=== PATIENT | male | born 1965 | race Caucasian/White ===

== ENCOUNTER 2022-01-11 15:10 | Inpatient (IN) | payer MEDICARE, BC ==
[2022-01-11 15:58] LABS: #Eosinphils 0.3 10x3/uL (0.0-0.5); #Monocytes 0.6 10x3/uL (0.0-1.1); #Neutrophils 5.9 10x3/uL (1.5-8.4); %Basophils 0.5 % (0.0-2.0); %Eosinophils 3.3 % (0.0-6.0); %Lymphocytes 8.1 % (18.0-47.0); %Neutrophils 79.4 % (40.0-75.0); Hemoglobin 12.2 g/dL (13.5-17.5); Mean Corpuscular HGB CONC 30.6 g/dL (32.0-36.0); Mean Corpuscular Hemoglobin 26.6 pg (27.0-33.0); Mean Corpuscular Volume 86.9 fl (81.2-95.1); Mean Platelet Volume 10.3 fl (7.4-10.4); Platelet Count 171 10x3/uL (150-450); RBC Distribution Width 16.9 % (11.5-14.5); Red Blood Cell (RBC) Count 4.59 10x6/uL (4.32-5.72); White Blood Cell (WBC) Count 7.5 10x3/uL (3.5-10.5)
[2022-01-11 16:11] LABS: ALT (SGPT) 11 U/L (8-55); AST (SGOT) 19 U/L (5-34); Albumin 4.1 g/dL (3.5-5.0); Alkaline Phosphatase 101 U/L (40-110); Anion Gap 15 mmol/L (10-20); BUN (Urea Nitrogen) 20 mg/dL (8.4-25.7); Bilirubin, Total 1.2 mg/dL (0.2-1.2); Calc. Creatinine Clearance 0 mL/min (70-130); Carbon Dioxide 24 mmol/L (22-29); Chloride 109 mmol/L (98-107); Globulin 2.4 g/dL (2.4-3.5); Glucose 110 mg/dL (70-105); Potassium 3.8 mmol/L (3.5-5.1); Protein, Total 6.5 g/dL (6.0-8.3); Sodium 144 mmol/L (136-145)
[2022-01-11] MEDS ORDERED: Acetaminophen 500 MG TAB ONE (16:19)
[2022-01-11] MEDS ORDERED: HYDROcodone/Acetaminophen 5/325 mg Tablet ONE (20:01)
[2022-01-11 21:23] LABS: Troponin I 0.022 ng/mL (< 0.028)
[2022-01-11 22:10] VITALS: BMI 54.8
[2022-01-11] MEDS ORDERED: Atorvastatin Calcium 40 MG TAB PO SCH (22:30)
[2022-01-11] MEDS ORDERED: traZODone HCl 50 MG TAB PO SCH (22:30)
[2022-01-11] MEDS ORDERED: Pregabalin 50 MG CAP PO SCH (22:30)
[2022-01-11] MEDS ORDERED: Nitroglycerin 2% Ointment 1 INCH/1 GM Packet TOP SCH (22:30)
[2022-01-11] MEDS: Apixaban 5 MG TAB PO SCH (22:40)
[2022-01-11] MEDS: Nitroglycerin 2% Ointment 1 INCH/1 GM Packet TOP SCH (22:41)
[2022-01-11] MEDS ORDERED: Torsemide 100 MG TAB PO SCH (22:45)
[2022-01-12] MEDS ORDERED: Labetalol HCl 100 MG/20 ML VIAL SLOW IVP SCH (00:30)
[2022-01-12 01:38] LABS: Troponin I 0.021 ng/mL (< 0.028)
[2022-01-12 05:15] LABS: #Basophils 0.1 10x3/uL (0.0-0.2); #Eosinphils 0.3 10x3/uL (0.0-0.5); #Monocytes 0.6 10x3/uL (0.0-1.1); #Neutrophils 4.3 10x3/uL (1.5-8.4); %Basophils 0.8 % (0.0-2.0); %Eosinophils 4.7 % (0.0-6.0); %Lymphocytes 14.4 % (18.0-47.0); %Monocytes 9.8 % (0.0-10.0); %Neutrophils 69.5 % (40.0-75.0); Hemoglobin 12.2 g/dL (13.5-17.5); Mean Corpuscular HGB CONC 30.1 g/dL (32.0-36.0); Mean Corpuscular Hemoglobin 25.8 pg (27.0-33.0); Mean Corpuscular Volume 85.8 fl (81.2-95.1); Mean Platelet Volume 10.3 fl (7.4-10.4); Platelet Count 161 10x3/uL (150-450); RBC Distribution Width 16.7 % (11.5-14.5); Red Blood Cell (RBC) Count 4.72 10x6/uL (4.32-5.72); White Blood Cell (WBC) Count 6.2 10x3/uL (3.5-10.5)
[2022-01-12 05:18] LABS: Anion Gap 14 mmol/L (10-20); BUN (Urea Nitrogen) 18 mg/dL (8.4-25.7); Calc. Creatinine Clearance 154 mL/min (70-130); Calcium 9.2 mg/dL (7.8-10.44); Carbon Dioxide 27 mmol/L (22-29); Cardiac Risk 3.6 (Less than 4.5); Chloride 107 mmol/L (98-107); Cholesterol 94 mg/dl (< 200 Desired); Glucose 93 mg/dL (70-105); HDL Cholesterol 26 mg/dL (>60 Neg Risk); LDL Cholesterol, Calculated 54 mg/dL; Magnesium 1.7 mg/dL (1.6-2.6); Potassium 3.4 mmol/L (3.5-5.1); Sodium 145 mmol/L (136-145); Triglycerides 72 mg/dL (Less than 150)
[2022-01-12] MEDS ORDERED: Spironolactone 25 MG TAB PO SCH ×2 (08:00→21:15)
[2022-01-12] MEDS: Aspirin 81 mg Enteric Coated Tablet PO SCH (09:16)
[2022-01-12] MEDS: Apixaban 5 MG TAB PO SCH ×2 (09:16→20:37)
[2022-01-12] MEDS: Potassium Chloride 20 MEQ TAB PO SCH (09:17)
[2022-01-12] MEDS: Torsemide 100 MG TAB PO SCH ×2 (09:23→21:40)
[2022-01-12] MEDS ORDERED: Carvedilol 25 MG TAB PO SCH (12:00)
[2022-01-12] MEDS ORDERED: Carvedilol 25 MG TAB ONE (12:12)
[2022-01-12] MEDS: HYDROcodone/Acetaminophen 10/325 mg Tablet PO PRN (12:13)
[2022-01-12] MEDS: Nitroglycerin 2% Ointment 1 INCH/1 GM Packet TOP SCH ×2 (14:47→20:41)
[2022-01-12] MEDS: Morphine 4 MG/ML VIAL SLOW IVP PRN (14:47)
[2022-01-12] MEDS: Carvedilol 12.5 MG TAB PO SCH (17:43)
[2022-01-12 19:59] LABS: SARS-CoV-2 PCR by NAA Not Detected (NotDetected)
[2022-01-12] MEDS: Atorvastatin Calcium 40 MG TAB PO SCH (20:37)
[2022-01-12] MEDS: Pregabalin 50 MG CAP PO SCH (20:38)
[2022-01-12] MEDS: traZODone HCl 50 MG TAB PO SCH (20:45)
[2022-01-13 04:24] LABS: #Eosinphils 0.4 10x3/uL (0.0-0.5); #Monocytes 0.6 10x3/uL (0.0-1.1); #Neutrophils 4.1 10x3/uL (1.5-8.4); %Basophils 0.7 % (0.0-2.0); %Eosinophils 6.2 % (0.0-6.0); %Lymphocytes 12.1 % (18.0-47.0); %Monocytes 9.5 % (0.0-10.0); Mean Corpuscular HGB CONC 29.6 g/dL (32.0-36.0); Mean Corpuscular Hemoglobin 25.9 pg (27.0-33.0); Mean Corpuscular Volume 87.3 fl (81.2-95.1); Mean Platelet Volume 11.1 fl (7.4-10.4); Platelet Count 168 10x3/uL (150-450); RBC Distribution Width 16.4 % (11.5-14.5); Red Blood Cell (RBC) Count 4.64 10x6/uL (4.32-5.72); White Blood Cell (WBC) Count 5.8 10x3/uL (3.5-10.5)
[2022-01-13 04:48] LABS: Anion Gap 14 mmol/L (10-20); BUN (Urea Nitrogen) 21 mg/dL (8.4-25.7); Calc. Creatinine Clearance 147 mL/min (70-130); Calcium 9.2 mg/dL (7.8-10.44); Carbon Dioxide 30 mmol/L (22-29); Chloride 103 mmol/L (98-107); Glucose 97 mg/dL (70-105); Potassium 3.2 mmol/L (3.5-5.1); Sodium 144 mmol/L (136-145)
[2022-01-13] MEDS: Nitroglycerin 2% Ointment 1 INCH/1 GM Packet TOP SCH ×3 (06:12→21:36)
[2022-01-13] MEDS: Apixaban 5 MG TAB PO SCH ×3 (08:43→21:36)
[2022-01-13] MEDS: Potassium Chloride 20 MEQ TAB PO SCH (08:43)
[2022-01-13] MEDS: HYDROcodone/Acetaminophen 10/325 mg Tablet PO PRN (08:44)
[2022-01-13] MEDS: Spironolactone 25 MG TAB PO SCH ×2 (08:44→16:05)
[2022-01-13] MEDS: Carvedilol 12.5 MG TAB PO SCH ×2 (08:44→16:18)
[2022-01-13] MEDS: Aspirin 81 mg Enteric Coated Tablet PO SCH (08:44)
[2022-01-13] MEDS: Torsemide 100 MG TAB PO SCH ×2 (08:46→21:34)
[2022-01-13] MEDS: Nitroglycerin 0.4 MG TAB (25 Tab Bottle) SL PRN ×2 (10:09→10:14)
[2022-01-13] MEDS: Morphine 4 MG/ML VIAL SLOW IVP PRN (12:56)
[2022-01-13] MEDS ORDERED: Electrolyte Replacement Protocol 1 EACH FS SCH (13:30)
[2022-01-13] MEDS ORDERED: Potassium Chloride 20 MEQ TAB PO SCH (13:45)
[2022-01-13] MEDS ORDERED: Magnesium 2 GM/50 ML(in water) 2 GM in Premix Bag 1 BAG IVPB SCH (13:45)
[2022-01-13] MEDS: Ibuprofen 600 MG TAB PO SCH ×2 (16:04→21:31)
[2022-01-13] MEDS: Diclofenac 1% 100 GM GEL TP SCH ×2 (17:19→21:32)
[2022-01-13] MEDS: Atorvastatin Calcium 40 MG TAB PO SCH (21:32)
[2022-01-13] MEDS: Famotidine 20 MG TAB PO SCH (21:33)
[2022-01-13] MEDS: Pregabalin 50 MG CAP PO SCH (21:33)
[2022-01-13] MEDS: traZODone HCl 50 MG TAB PO SCH (21:34)
[2022-01-14] MEDS: Morphine 4 MG/ML VIAL SLOW IVP PRN ×3 (00:03→23:52)
[2022-01-14] MEDS: Ibuprofen 600 MG TAB PO SCH ×4 (02:18→20:16)
[2022-01-14 05:10] LABS: Magnesium 1.9 mg/dL (1.6-2.6); Potassium 3.9 mmol/L (3.5-5.1)
[2022-01-14] MEDS ORDERED: Magnesium 2 GM/50 ML(in water) 2 GM in Premix Bag 1 BAG IVPB SCH ×2 (05:30→06:45)
[2022-01-14] MEDS: Nitroglycerin 2% Ointment 1 INCH/1 GM Packet TOP SCH ×3 (06:47→21:22)
[2022-01-14] MEDS: Torsemide 100 MG TAB PO SCH ×2 (10:22→21:27)
[2022-01-14] MEDS: Aspirin 81 mg Enteric Coated Tablet PO SCH (10:22)
[2022-01-14] MEDS: Lidocaine 5% Patch TD SCH (10:23)
[2022-01-14] MEDS: Famotidine 20 MG TAB PO SCH ×2 (10:23→20:17)
[2022-01-14] MEDS: Carvedilol 12.5 MG TAB PO SCH ×2 (10:23→16:44)
[2022-01-14] MEDS: Apixaban 5 MG TAB PO SCH ×2 (10:23→20:17)
[2022-01-14] MEDS: Spironolactone 25 MG TAB PO SCH ×2 (10:24→16:44)
[2022-01-14] MEDS: Potassium Chloride 20 MEQ TAB PO SCH (10:24)
[2022-01-14] MEDS: HYDROcodone/Acetaminophen 10/325 mg Tablet PO PRN ×2 (13:30→20:27)
[2022-01-14] MEDS: Diclofenac 1% 100 GM GEL TP SCH ×4 (17:43→21:15)
[2022-01-14] MEDS: Pregabalin 50 MG CAP PO SCH (20:17)
[2022-01-14] MEDS: Atorvastatin Calcium 40 MG TAB PO SCH (20:18)
[2022-01-14] MEDS: traZODone HCl 50 MG TAB PO SCH (20:18)
[2022-01-14] MEDS: Transdermal Patch Removal TOP SCH (21:27)
[2022-01-15] MEDS: Ibuprofen 600 MG TAB PO SCH ×4 (01:35→21:01)
[2022-01-15 04:50] LABS: Phosphorus 4.4 mg/dL (2.3-4.7)
[2022-01-15 04:53] LABS: Anion Gap 13 mmol/L (10-20); BUN (Urea Nitrogen) 33 mg/dL (8.4-25.7); Calc. Creatinine Clearance 97 mL/min (70-130); Calcium 8.8 mg/dL (7.8-10.44); Carbon Dioxide 30 mmol/L (22-29); Chloride 103 mmol/L (98-107); Glucose 99 mg/dL (70-105); Magnesium 2.3 mg/dL (1.6-2.6); Potassium 4.1 mmol/L (3.5-5.1); Sodium 142 mmol/L (136-145)
[2022-01-15] MEDS: Nitroglycerin 2% Ointment 1 INCH/1 GM Packet TOP SCH ×2 (05:48→14:00)
[2022-01-15] MEDS: HYDROcodone/Acetaminophen 10/325 mg Tablet PO PRN (05:48)
[2022-01-15] MEDS: Lidocaine 5% Patch TD SCH (09:29)
[2022-01-15] MEDS: Diclofenac 1% 100 GM GEL TP SCH ×4 (09:29→21:02)
[2022-01-15] MEDS: Aspirin 81 mg Enteric Coated Tablet PO SCH (09:31)
[2022-01-15] MEDS: Famotidine 20 MG TAB PO SCH ×3 (09:31→21:02)
[2022-01-15] MEDS: Apixaban 5 MG TAB PO SCH ×2 (09:31→21:01)
[2022-01-15] MEDS: Torsemide 100 MG TAB PO SCH ×2 (09:31→20:59)
[2022-01-15] MEDS: Potassium Chloride 20 MEQ TAB PO SCH (09:31)
[2022-01-15] MEDS: Spironolactone 25 MG TAB PO SCH ×2 (09:31→17:36)
[2022-01-15] MEDS: Carvedilol 12.5 MG TAB PO SCH ×2 (09:40→17:36)
[2022-01-15 13:57] LABS: Troponin I 0.018 ng/mL (< 0.028)
[2022-01-15] MEDS: Morphine 4 MG/ML VIAL SLOW IVP PRN (14:09)
[2022-01-15] MEDS: Promethazine HCl 12.5 MG in Sodium Chloride 0.9% 50 ML IVPB PRN (16:53)
[2022-01-15] MEDS: Atorvastatin Calcium 40 MG TAB PO SCH (21:00)
[2022-01-15] MEDS: Pregabalin 50 MG CAP PO SCH (21:00)
[2022-01-15] MEDS: traZODone HCl 50 MG TAB PO SCH (21:16)
[2022-01-15] MEDS: Transdermal Patch Removal TOP SCH (21:20)
[2022-01-16] MEDS: Ibuprofen 600 MG TAB PO SCH ×2 (04:11→05:52)
[2022-01-16 05:26] LABS: Anion Gap 20 mmol/L (10-20); BUN (Urea Nitrogen) 41 mg/dL (8.4-25.7); Calc. Creatinine Clearance 86 mL/min (70-130); Calcium 9.3 mg/dL (7.8-10.44); Carbon Dioxide 25 mmol/L (22-29); Chloride 102 mmol/L (98-107); Glucose 92 mg/dL (70-105); Sodium 142 mmol/L (136-145)
[2022-01-16 07:56] LABS: Magnesium 2.5 mg/dL (1.6-2.6); Phosphorus 4.4 mg/dL (2.3-4.7)
[2022-01-16] MEDS: Aspirin 81 mg Enteric Coated Tablet PO SCH (09:00)
[2022-01-16] MEDS: Lidocaine 5% Patch TD SCH (09:00)
[2022-01-16] MEDS: Potassium Chloride 20 MEQ TAB PO SCH (09:00)
[2022-01-16] MEDS: Torsemide 100 MG TAB PO SCH (09:00)
[2022-01-16] MEDS: Apixaban 5 MG TAB PO SCH ×2 (09:01→21:03)
[2022-01-16] MEDS: Carvedilol 12.5 MG TAB PO SCH ×2 (09:01→17:03)
[2022-01-16] MEDS: Spironolactone 25 MG TAB PO SCH ×2 (09:01→17:03)
[2022-01-16] MEDS: Morphine 4 MG/ML VIAL SLOW IVP PRN (09:24)
[2022-01-16] MEDS: Diclofenac 1% 100 GM GEL TP SCH ×5 (09:44→21:06)
[2022-01-16] MEDS: HYDROcodone/Acetaminophen 10/325 mg Tablet PO PRN (12:48)
[2022-01-16] MEDS: Promethazine HCl 12.5 MG in Sodium Chloride 0.9% 50 ML IVPB PRN (17:22)
[2022-01-16] MEDS: Lactated Ringer's 500 ML IV SCH (18:53)
[2022-01-16] MEDS: Pregabalin 50 MG CAP PO SCH (21:03)
[2022-01-16] MEDS: traZODone HCl 50 MG TAB PO SCH (21:04)
[2022-01-16] MEDS: Atorvastatin Calcium 40 MG TAB PO SCH (21:04)
[2022-01-16] MEDS: Famotidine 20 MG TAB PO SCH (21:04)
[2022-01-16] MEDS: Transdermal Patch Removal TOP SCH (21:04)
[2022-01-17 01:58] LABS: Bilirubin Neg (Negative); Blood, Urine 250 (Negative); Clarity Cloudy (Clear); Glucose, Urine (Dipstick) Normal (Negative); Ketone, Urine Negative (Negative); Leukocyte Negative (Negative); Nitrite Negative (Negative); Protein, Urine (Dipstick) 30 mg/dl (Neg-Trace); Urobilinogen Normal mg/dL (Less than 2)
[2022-01-17 02:08] LABS: Bacteria/HPF 1+ HPF (None Seen); Mucous/LPF Rare LPF (<2+); Squamous Epithelial 0-3 HPF (0-3)
[2022-01-17] MEDS: Lactated Ringer's 500 ML IV SCH (04:29)
[2022-01-17 04:44] LABS: Anion Gap 17 mmol/L (10-20); BUN (Urea Nitrogen) 47 mg/dL (8.4-25.7); Calc. Creatinine Clearance 89 mL/min (70-130); Calcium 9.4 mg/dL (7.8-10.44); Carbon Dioxide 26 mmol/L (22-29); Chloride 105 mmol/L (98-107); Glucose 94 mg/dL (70-105); Potassium 4.7 mmol/L (3.5-5.1); Sodium 143 mmol/L (136-145)
[2022-01-17] MEDS: Famotidine 20 MG TAB PO SCH ×2 (09:32→20:49)
[2022-01-17] MEDS: Aspirin 81 mg Enteric Coated Tablet PO SCH (09:32)
[2022-01-17] MEDS: Apixaban 5 MG TAB PO SCH ×2 (09:33→20:49)
[2022-01-17] MEDS: Lidocaine 5% Patch TD SCH (09:33)
[2022-01-17] MEDS: Carvedilol 12.5 MG TAB PO SCH ×2 (09:33→17:46)
[2022-01-17] MEDS: cefTRIAXone\\ROCEPHIN 1 GM in Sodium Chloride 0.9% 100 ML IVPB SCH (09:34)
[2022-01-17] MEDS: Diclofenac 1% 100 GM GEL TP SCH ×4 (09:37→20:57)
[2022-01-17 15:06] LABS: Creatinine, Urine 75.68 mg/dL (63-166)
[2022-01-17] MEDS: Atorvastatin Calcium 40 MG TAB PO SCH (20:49)
[2022-01-17] MEDS: traZODone HCl 50 MG TAB PO SCH (20:49)
[2022-01-17] MEDS: Pregabalin 50 MG CAP PO SCH (20:50)
[2022-01-17] MEDS: Transdermal Patch Removal TOP SCH (20:57)
[2022-01-18] MEDS: HYDROcodone/Acetaminophen 10/325 mg Tablet PO PRN ×2 (00:22→08:01)
[2022-01-18 06:24] LABS: Anion Gap 13 mmol/L (10-20); BUN (Urea Nitrogen) 43 mg/dL (8.4-25.7); Calc. Creatinine Clearance 96 mL/min (70-130); Calcium 9.2 mg/dL (7.8-10.44); Carbon Dioxide 31 mmol/L (22-29); Chloride 103 mmol/L (98-107); Glucose 93 mg/dL (70-105); Potassium 4.3 mmol/L (3.5-5.1); Sodium 143 mmol/L (136-145)
[2022-01-18] MEDS: Aspirin 81 mg Enteric Coated Tablet PO SCH (08:01)
[2022-01-18] MEDS: Apixaban 5 MG TAB PO SCH (08:01)
[2022-01-18] MEDS: cefTRIAXone\\ROCEPHIN 1 GM in Sodium Chloride 0.9% 100 ML IVPB SCH (08:02)
[2022-01-18] MEDS: Carvedilol 12.5 MG TAB PO SCH (08:02)
[2022-01-18] MEDS: Famotidine 20 MG TAB PO SCH (08:02)
[2022-01-18] MEDS: Lidocaine 5% Patch TD SCH (08:02)
[2022-01-18] MEDS: Diclofenac 1% 100 GM GEL TP SCH ×2 (08:02→12:45)
[2022-01-18] MEDS ORDERED: Torsemide 100 MG TAB PO SCH (09:00)
[2022-01-18 11:43] VITALS: BP 115/64; TEMP 97.4
== END 2022-01-18 14:03 | DRG 205 ==
LOC: CSHERS 15:10 → CSHTELE 21:36 → OBSVTOIN 01-14 17:59
PROVIDERS: ADMIT Family Medicine; ATTEND Family Medicine
DX: M94.0 Chondrocostal junction syndrome [Tietze] (principal); I50.33 Acute on chronic diastolic (congestive) heart failure; N17.9 Acute kidney failure, unspecified; I13.0 Hypertensive heart and chronic kidney disease with heart failure and stage 1 through stage 4 chronic kidney disease, or unspecified chronic kidney disease; E87.3 Alkalosis; Z68.43 Body mass index [BMI] 50.0-59.9, adult; I34.0 Nonrheumatic mitral (valve) insufficiency; E78.5 Hyperlipidemia, unspecified; G47.33 Obstructive sleep apnea (adult) (pediatric); K74.60 Unspecified cirrhosis of liver; E66.01 Morbid (severe) obesity due to excess calories; N18.32 Chronic kidney disease, stage 3b; F32.9 Major depressive disorder, single episode, unspecified; I25.10 Atherosclerotic heart disease of native coronary artery without angina pectoris; I48.0 Paroxysmal atrial fibrillation; I87.2 Venous insufficiency (chronic) (peripheral); E83.39 Other disorders of phosphorus metabolism; E88.09 Other disorders of plasma-protein metabolism, not elsewhere classified; Z20.822 Contact with and (suspected) exposure to COVID-19; I25.2 Old myocardial infarction; Z98.890 Other specified postprocedural states; Z95.0 Presence of cardiac pacemaker; Z88.1 Allergy status to other antibiotic agents; Z79.01 Long term (current) use of anticoagulants; Z79.899 Other long term (current) drug therapy
CPT/HCPCS: 36415; 71045; 76770; 80048; 80053; 80061; 81001; 82570; 83735; 83880; 84100; 84132; 84156; 84484; 85025; 87086; 93005; 93010; 93306; 93970; 94660; 96374; 96375; 96376; G0378; J0696; J2270; J2550; J3475; J3490; J7120; U0003; U0005